=== PATIENT | female | born 1990 | race Caucasian/White ===

== ENCOUNTER 2017-05-08 12:33 | Emergency (ER) | payer OTHER ==
[~2017-05-08] VITALS: Ht 165.1 cm; Wt 60.1 kg
[~2017-05-08 12:33] MED LIST: ALEVE220 MG PO; CEFDINIR300 MG PO; CLINDAMYCIN HC300 MG PO; MICROGESTIN FE1 EAC1 PO; OXYCODONE HCL5 MG PO; PROTONIX40 MG PO; ULTRAM50 MG PO; ZOFRAN4 MG PO
[2017-05-08 13:16] LABS: HEMATOCRIT 40.1 % (36.0-46.0); MCH 29.1 PG (29.0-34.0); MCHC 33.4 G/DL (30.0-36.0); MCV 87.2 FL (83-99); MEAN PLAT.VOLUME 9.8 uM^3 (9.5-12.4); PLATELET COUNT 255 K/uL (156-360); RBC DIS.WIDTH-CV 12.3 % (11.8-14.6); RBC DIS.WIDTH-SD 39.3 % (39-53); WHITE BLOOD COUNT 9.6 K/uL (4.1-10.2)
[2017-05-08 13:30] LABS: CHLORIDE 106 mEq/L (99-109); POTASSIUM 4.3 mEq/L (3.7-5.4); SODIUM 140 mEq/L (136-147)
[2017-05-08 13:32] LABS: GLUCOSE 95 mg/dL (70-99)
[2017-05-08 13:34] LABS: ANION GAP 8 MEQ/L (2-14); TOTAL BILIRUBIN 0.7 mg/dL (0.0-1.0)
[2017-05-08 13:36] LABS: ALKALINE PHOSPHATASE 70 IU/L (3-129); GFR ESTIMATE (CALCULATED) > 59 mL/min/
[2017-05-08 13:37] LABS: UREA NITROGEN (BUN) 10 mg/dL (9-23)
[2017-05-08 13:45] LABS: QUANTITATIVE HCG < 4.0 MIU/ML
[2017-05-08 14:43] LABS: ADD MIUA? NO; BILIRUBIN NEGATIVE; BLOOD NEGATIVE; COLOR YELLOW ((YELLOW)); GLUCOSE (STRIP) NEGATIVE; KETONES NEGATIVE; LEUKOCYTES NEGATIVE; NITRITE NEGATIVE; PROTEIN (STRIP) NEGATIVE; SPECIFIC GRAVITY 1.009 (1.000-1.030); UCUL ADDED? NO; UROBILINOGEN 0.2 MG/DL (0.2-1.0)
[2017-05-08 15:46] VITALS: BP 126/79
== END 2017-05-08 15:46 | disposition home or self-care (01) ==
LOC: EME 12:33
DX: R10.9 Unspecified abdominal pain (principal); R19.7 Diarrhea, unspecified; N89.8 Other specified noninflammatory disorders of vagina; R11.0 Nausea; Z87.891 Personal history of nicotine dependence
CPT/HCPCS: 80053; 81003; 84702; 85027